=== PATIENT | male | born 1985 | race African-American/Black ===

== ENCOUNTER 2018-08-15 14:24 | Emergency (ER) | payer OTHER ==
[2018-08-15] MEDS ORDERED: LORAZEPAM 2 MG INJ IM (16:30)
[2018-08-15] MEDS: TRIMETHOPRIM/SULFAMETHOX (DS) TAB PO (16:41)
[2018-08-15] MEDS: CEPHALEXIN 500 MG CAP PO (16:41)
[2018-08-15] MEDS: LORAZEPAM 1 MG TAB PO (16:41)
[2018-08-15] MEDS: BACITRACIN 0.9 GM OINT TOP (17:13)
== END 2018-08-15 17:14 | disposition left against medical advice (07) ==
LOC: FTE 17:14
DX: L03.119 Cellulitis of unspecified part of limb (principal); Z87.891 Personal history of nicotine dependence
CPT/HCPCS: 99283; Z7502

== ENCOUNTER 2018-08-17 13:30 | Emergency (ER) | payer SELFPAY, OTHER | END 2018-08-17 15:15 | disposition left against medical advice (07) | LOC: FTE 13:30 | DX: Z53.21 Procedure and treatment not carried out due to patient leaving prior to being seen by health care provider (principal) ==